=== PATIENT | female | born 1995 | race Caucasian/White ===

== ENCOUNTER 2017-08-19 19:27 | Emergency (ER) | payer OTHER ==
[2017-08-19 19:47] VITALS: BP 146/88; PULSE 67; RESP 20; TEMP 98
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
== END 2017-08-19 20:22 | disposition home or self-care (01) ==
LOC: SUPCPDRO 19:27 → EC 19:27
DX: S61.210A Laceration without foreign body of right index finger without damage to nail, initial encounter (principal); Z79.899 Other long term (current) drug therapy; W23.0XXA Caught, crushed, jammed, or pinched between moving objects, initial encounter
CPT/HCPCS: 99283